=== PATIENT | female | born 2000 | race Caucasian/White ===

== ENCOUNTER 2019-04-21 17:36 | Emergency (ER) | payer OTHER ==
[2019-04-21 17:47] VITALS: BP 144/93
--- NOTE | 2019-04-21 17:49 | ER Document Report ---
HPI - HPI Patient complains to provider of: panic attacks Time Seen by Provider: 04/21/19 17:46 Onset: Other - 5 days Onset/Duration: Waxing and waning Pain Level: Denies Context: Patient presents complaining of panic attacks off and on over the past 5 days since having an argument with a friend. Patient states that when she has these attacks she will hyperventilate. Patient states she has had a cough for the past several days as well. Patient has no previous history of panic attacks. Patient denies any suicidal homicidal ideation. Patient is anxious about having a panic attack when she is at work. Associated Symptoms: Nonproductive cough. denies: Chest pain, Productive cough, Nausea, Vomiting Exacerbated by: Denies Relieved by: Denies Similar symptoms previously: No Recently seen / treated by doctor: No - ROS ROS below otherwise negative: Yes Systems Reviewed and Negative: Yes All other systems reviewed and negative - CONSTITUTIONAL Constitutional: DENIES: Fever, Chills - CARDIOVASCULAR Cardiovascular: DENIES: Chest pain - RESPIRATORY Respiratory: REPORTS: Coughing. DENIES: Trouble Breathing - GASTROINTESTINAL Gastrointestinal: DENIES: Nausea, Patient vomiting - DERM Skin Color: Normal Skin Problems: None Past Medical History - General Information source: Patient - Social History Smoking Status: Never Smoker Frequency of alcohol use: None Drug Abuse: None Occupation: Housekeeping Lives with: Family Family History: Reviewed & Not Pertinent Patient has suicidal ideation: No Patient has homicidal ideation: No - Medical History Medical History: Negative Past Surgical History: Reports: Hx Orthopedic Surgery Vertical Provider Document - CONSTITUTIONAL Agree With Documented VS: Yes Exam Limitations: No Limitations General Appearance: WD/WN, No Apparent Distress - HEENT HEENT: Atraumatic, Normal ENT Exam, Normocephalic - NECK Neck: Normal Inspection, Supple. negative: Lymphadenopathy-Left, Lymphadenopathy-Right - RESPIRATORY Respiratory: Breath Sounds Normal, No Respiratory Distress, Chest Non-Tender - CARDIOVASCULAR Cardiovascular: Regular Rate, Regular Rhythm, No Murmur. negative: Tachycardia - BACK Back: Normal Inspection - MUSCULOSKELETAL/EXTREMETIES Musculoskeletal/Extremeties: BRITANY KWONG - NEURO Level of Consciousness: Awake, Alert, Appropriate Motor/Sensory: No Motor Deficit - DERM Integumentary: Warm, Dry Course - Re-evaluation Re-evalutation: 04/21/19 18:46 X-ray reviewed, no concern for pneumonia or pneumothorax. Patient presents with symptoms worrisome for anxiety with panic attack. Patient advised that she will need to follow-up with a mental health provider or primary doctor for further management of her anxiety. Patient denies any suicidal or homicidal ideation. Patient does not meet IVC criteria at this time. - Diagnostic Test Radiology reviewed: Image reviewed, Reports reviewed - EKG Interpretation by Me EKG shows normal: Sinus rhythm Rate: Normal Additional EKG results interpreted by me: 04/21/19 18:[address] elevation, QTc 390 Discharge - Discharge Clinical Impression: Anxiety Upper respiratory infection Qualifiers: URI type: unspecified URI Qualified Code(s): J06.9 - Acute upper respiratory infection, unspecified Condition: Stable Disposition: HOME, SELF-CARE Instructions: Anxiety ([facility]), Upper Respiratory Illness ([facility]) Additional Instructions: Return immediately for any new or worsening symptoms Followup with your primary care provider, call tomorrow to make a followup appointment Follow-up with a mental health provider for further evaluation and management of your anxiety symptoms. Prescriptions: Hydroxyzine HCl [Atarax 25 mg Tablet] 2 tab PO BID PRN #20 tablet PRN Reason: Forms: Return to Work Referrals: [facility] [Provider Group] - Follow up as needed [facility] [Provider Group] - Follow up tomorrow
--- NOTE | 2019-04-21 18:28 | EKG REPORT ---
SEVERITY:- NORMAL ECG - SINUS RHYTHM : Confirmed by: Agnieszka Wu 21-Apr-2019 18:27:22
--- NOTE | 2019-04-21 18:43 | RADIOLOGY REPORT (SQ) ---
EXAM DESCRIPTION: CHEST 2 VIEWS COMPLETED DATE/TIME: 04/21/2019 6:02 pm REASON FOR STUDY: cough COMPARISON: None. EXAM PARAMETERS: NUMBER OF VIEWS: two views TECHNIQUE: Digital Frontal and Lateral radiographic views of the chest acquired. RADIATION DOSE: NA LIMITATIONS: none FINDINGS: LUNGS AND PLEURA: No opacities, masses or pneumothorax. No pleural effusion. MEDIASTINUM AND HILAR STRUCTURES: No masses or contour abnormalities. HEART AND VASCULAR STRUCTURES: Heart normal size. No evidence for failure. BONES: No acute findings. HARDWARE: None in the chest. OTHER: No other significant finding. IMPRESSION: NO ACUTE RADIOGRAPHIC FINDING IN THE CHEST. TECHNICAL DOCUMENTATION: JOB ID: [id number] [employer]- All Rights Reserved Reading location - IP/workstation name: [email or web address]
== END 2019-04-21 18:55 | disposition home or self-care (01) ==
LOC: ER 17:36
DX: F41.0 Panic disorder [episodic paroxysmal anxiety] (principal); J06.9 Acute upper respiratory infection, unspecified
CPT/HCPCS: 71046; 93005; 93010; 99283

== ENCOUNTER 2019-07-16 21:02 | Emergency (ER) | payer SELFPAY ==
--- NOTE | 2019-07-16 21:17 | ER Document Report ---
ED Medical Screen (RME) - General Stated Complaint: ABDOMINAL PAIN Time Seen by Provider: 07/16/19 21:13 - HPI Notes: 07/16/19 21:16 Patient is a 18-year-old female with no significant past medical history presents complaining right lower quadrant/right lower pelvic pain that is been present for the past 24 hours. Patient states that she is 14 days late on her menstrual cycle. Patient states that she did take 2 tests and one was faintly positive one was negative. Otherwise her test have been inconclusive. She has occasional nausea. She is not having any vomiting or diarrhea otherwise. No other vaginal bleeding, odor, or discharge. No trouble urinating. I have treated and performed a rapid initial assessment of this patient. A comprehensive ED assessment and evaluation of the patient, analysis of test results and completion of medical decision making process will be conducted by additional ED providers. PHYSICAL EXAMINATION: GENERAL: Well-appearing, well-nourished and in no acute distress. A&Ox4. Answers questions appropriately. Abdomen: Limited exam in triage, there is some mild tenderness noted in the right lower pelvic area. Difficult to fully assess if this is pelvic or right lower quadrant without a bed. - Related Data Allergies/Adverse Reactions: tramadol Allergy (Verified 04/21/19 17:44) Past Medical History Past Surgical History: Reports: Hx Orthopedic Surgery Physical Exam - Vital signs Vitals: Temp Pulse Resp BP Pulse Ox 98.1 F 79 16 140/84 H 100 07/16/19 21:06 07/16/19 21:06 07/16/19 21:06 07/16/19 21:06 07/16/19 21:06 Course - Vital Signs Vital signs: Temp Pulse Resp BP Pulse Ox 98.1 F 79 16 140/84 H 100 07/16/19 21:06 07/16/19 21:06 07/16/19 21:06 07/16/19 21:06 07/16/19 21:06
--- NOTE | 2019-07-16 22:47 | RADIOLOGY REPORT (SQ) ---
EXAM DESCRIPTION: US PELVIS TRANSVAGINAL COMPLETED DATE/TME: 07/16/2019 21:18 CLINICAL HISTORY: 18 years, Female, Rt pelvic pain COMPARISON: None. TECHNIQUE: Transverse and longitudinal sonographic images of the pelvis LIMITATIONS: None. FINDINGS: The uterus measures 6.8 x 2.8 x 4.6 cm. The myometrium is homogenous. Endometrium measures 8 mm in thickness. The right ovary measures 3.7 x 3.5 x 3.0 cm, the left 2.3 x 2.2 x 1.4 cm. Doppler and spectral analysis with color flow shows normal flow to each ovary. There is a simple appearing cyst of the right ovary measuring 2.7 x 2.6 cm. No solid adnexal mass. No free fluid IMPRESSION: Simple right ovarian cyst which does not require follow-up. Remainder unremarkable copyright 2010 [employer]- All Rights Reserved
--- NOTE | 2019-07-16 23:00 | ER Document Report ---
ED General - General Chief Complaint: Abdominal Pain Stated Complaint: ABDOMINAL PAIN Time Seen by Provider: 07/16/19 21:13 Mode of Arrival: Ambulatory Information source: Patient Notes: 18-year-old female arrives with her with chief complaint of missing 14 days of monthly. Patient is G0, P0 and is sexually active. Patient also admits to nausea for the last several days and right lower quadrant abdominal pain TRAVEL OUTSIDE OF THE [place] IN LAST 30 DAYS: No - HPI Onset: This morning Severity: Mild Pain Level: 1 Associated symptoms: Nausea Exacerbated by: Movement, Food Relieved by: Denies Similar symptoms previously: No Recently seen / treated by doctor: No - Related Data Allergies/Adverse Reactions: tramadol Allergy (Verified 04/21/19 17:44) Past Medical History - General Information source: Patient - Social History Smoking Status: Never Smoker Cigarette use (# per day): No Chew tobacco use (# tins/day): No Smoking Education Provided: No Frequency of alcohol use: None Drug Abuse: None Family History: Reviewed & Not Pertinent Patient has suicidal ideation: No Patient has homicidal ideation: No Past Surgical History: Reports: Hx Orthopedic Surgery - right knee, left ankle Review of Systems - Review of Systems Constitutional: See HPI EENT: No symptoms reported Cardiovascular: No symptoms reported Respiratory: No symptoms reported Gastrointestinal: See HPI, Abdominal pain, Nausea Genitourinary: No symptoms reported Female Genitourinary: See HPI, Heavy/abnormal periods Musculoskeletal: No symptoms reported Skin: No symptoms reported Hematologic/Lymphatic: No symptoms reported Neurological/Psychological: No symptoms reported Physical Exam - Vital signs Vitals: Temp Pulse Resp BP Pulse Ox 98.1 F 79 16 140/84 H 100 07/16/19 21:06 07/16/19 21:06 07/16/19 21:06 07/16/19 21:06 07/16/19 21:06 Interpretation: Normal - General General appearance: Alert - HEENT Head: Normocephalic Eyes: Normal Conjunctiva: Normal Cornea: Normal Extraocular movements intact: Yes Eyelashes: Normal Pupils: PERRL Nasal: Normal Mouth/Lips: Normal Mucous membranes: Normal - Respiratory Respiratory status: No respiratory distress Chest status: Nontender Breath sounds: Normal Chest palpation: Normal - Cardiovascular Rhythm: Regular Heart sounds: Normal auscultation Murmur: No Friction rub: No Earnest's crunch: No - Abdominal Inspection: Normal Distension: No distension Bowel sounds: Normal Tenderness: Tender - Back Back: Normal - Extremities General upper extremity: Normal inspection General lower extremity: Normal inspection - Neurological Neuro grossly intact: Yes Cognition: Normal Orientation: AAOx4 [place] Coma Scale Eye Opening: Spontaneous [place] Coma Scale Verbal: Oriented Zoe Coma Scale Motor: Obeys Commands [place] Coma Scale Total: 15 Speech: Normal Cranial nerves: Normal Cerebellar coordination: Normal Motor strength normal: LUE, RUE, LLE, RLE - Psychological Associated symptoms: Normal affect, Other - History of anxiety - Skin Skin Temperature: Warm Skin Moisture: Dry Course - Vital Signs Vital signs: Temp Pulse Resp BP Pulse Ox 98.1 F 79 16 140/84 H 100 07/16/19 21:06 07/16/19 21:06 07/16/19 21:06 07/16/19 21:06 07/16/19 21:06 - Laboratory Result Diagrams: 07/16/19 22:58 07/16/19 22:58 Laboratory results interpreted by me: 07/16/19 07/16/19 22:58 22:58 WBC 12.0 H AST 31 H ALT 42 H - Diagnostic Test Radiology reviewed: Reports reviewed Critical Care Note - Critical Care Note Total time excluding time spent on procedures (mins): 90 Comments: Serum hCG was less than 2 and negative total Discharge - Discharge Clinical Impression: Ovarian cyst Qualifiers: Laterality: right Qualified Code(s): N83.201 - Unspecified ovarian cyst, right side Condition: Good Disposition: HOME, SELF-CARE Additional Instructions: Follow-up with [facility] and return to ER as needed take meds as directed encourage fluids; recheck test in 20 days Prescriptions: Etodolac [Lodine] 400 mg PO BID #14 tablet Ondansetron [Zofran Odt 4 mg Tablet] 1 tab PO TID #15 tab.rapdis Forms: Return to Work
[2019-07-16 23:17] LABS: ABSOLUTE BASOPHILS # (AUTO) 0.1 10^3/uL (0.0-0.2); ABSOLUTE EOSINOPHILS # (AUTO) 0.3 10^3/uL (0.0-0.6); ABSOLUTE LYMPHOCYTES (AUTO) 3.7 10^3/uL (0.5-4.7); ABSOLUTE MONOCYTES (AUTO) 1.4 10^3/uL (0.1-1.4); ABSOLUTE NEUT (AUTO) 6.5 10^3/uL (1.7-8.2); BASOPHILS % (AUTO) 1.1 % (0-2); EOSINOPHILS % (AUTO) 2.4 % (0-6); HEMOGLOBIN 13.7 g/dL (12.0-15.5); LYMPHOCYTES % (AUTO) 31.1 % (13-45); MEAN CORPUSCULAR HEMOGLOBIN 30.2 pg (27.0-33.4); MEAN CORPUSCULAR HGB CONC 35.1 g/dL (32.0-36.0); MEAN CORPUSCULAR VOLUME 86 fl (80-97); MONOCYTES % (AUTO) 11.3 % (3-13); PLATELET COUNT 270 10^3/uL (150-450); RED BLOOD COUNT 4.52 10^6/uL (3.72-5.28); RED CELL DISTRIBUTION WIDTH 13.3 % (11.5-14.0); SEGMENTED NEUTROPHILS % (AUTO) 54.1 % (42-78); TOTAL CELLS COUNTED % (AUTO) 100 %
[2019-07-16 23:39] LABS: ALBUMIN 4.3 g/dL (3.7-5.6); ALKALINE PHOSPHATASE 91 U/L (50-135); ANION GAP 10 (5-19); ASPARTATE AMINO TRANSFERASE 31 U/L (5-30); BILIRUBIN,DIRECT 0.3 mg/dL (0.0-0.4); BILIRUBIN,TOTAL 0.3 mg/dL (0.2-1.3); BLOOD UREA NITROGEN 15 mg/dL (7-20); CALCIUM 9.9 mg/dL (8.4-10.2); CARBON DIOXIDE 23 mmol/L (22-30); CHLORIDE 106 mmol/L (98-107); GLUCOSE 89 mg/dL (75-110); TOTAL PROTEIN 7.5 g/dL (6.3-8.2)
[2019-07-17 00:23] LABS: APPEARANCE,URINE CLEAR; BILIRUBIN,URINE NEGATIVE (NEGATIVE); COLOR,URINE YELLOW; GLUCOSE, URINE NEGATIVE (NEGATIVE); KETONES,URINE NEGATIVE (NEGATIVE); PROTEIN,URINE NEGATIVE (NEGATIVE); URINE SPECIFIC GRAVITY 1.017; UROBILINOGEN,URINE NEGATIVE mg/dL (<2.0)
[2019-07-17 00:31] VITALS: BP 123/79
== END 2019-07-17 00:32 | disposition home or self-care (01) ==
LOC: ER 21:02
DX: N83.201 Unspecified ovarian cyst, right side (principal); R11.0 Nausea; R10.31 Right lower quadrant pain
CPT/HCPCS: 36415; 76830; 80053; 81001; 84702; 84703; 85025; 93976; 99285